=== PATIENT | male | born 1970 | race Caucasian/White ===

== ENCOUNTER 2024-07-13 08:21 | Day surgery (SDC) | payer OTHER ==
[~2024-07-13] VITALS: Ht 165.1 cm; Wt 65.8 kg
[2024-07-13] MEDS ORDERED: fentaNYL CITRATE/PF 100 MCG/2 ML AMP ONE (08:34)
[2024-07-13] MEDS ORDERED: MIDAZOLAM HCL 5 MG/5 ML VIAL ONE (08:34)
[2024-07-13 11:55] VITALS: O2SAT 98
[2024-07-13 16:43] VITALS: BP_SYST 94; PULSE 68; RESP 20
== END 2024-07-13 12:11 | disposition home or self-care (01) ==
LOC: SDS 08:21 → SMU 08:22 → SDS 12:11
PROVIDERS: ATTEND Internal Medicine
DX: Z12.11 Encounter for screening for malignant neoplasm of colon (principal); D12.2 Benign neoplasm of ascending colon; D12.8 Benign neoplasm of rectum; K64.8 Other hemorrhoids; I10 Essential (primary) hypertension; I25.2 Old myocardial infarction; Z79.899 Other long term (current) drug therapy
CPT/HCPCS: 45385; 99152; 88305; G0378; J2250; J3010; 45384